=== PATIENT | female | born 1965 | race Two or more races ===

== ENCOUNTER 2022-04-15 19:19 | Emergency (ER) | payer OTHER ==
[~2022-04-15] VITALS: Ht 157.5 cm; Wt 138.3 kg
[~2022-04-15 19:19] MED LIST: COZAAR50 MG PO; SYNTHROID50 MCG PO
== END 2022-04-16 09:32 | disposition home or self-care (01) ==
LOC: ER 19:19
DX: S80.212A Abrasion, left knee, initial encounter (principal); L97.828 Non-pressure chronic ulcer of other part of left lower leg with other specified severity; L97.118 Non-pressure chronic ulcer of right thigh with other specified severity; L98.498 Non-pressure chronic ulcer of skin of other sites with other specified severity; I10 Essential (primary) hypertension; E66.01 Morbid (severe) obesity due to excess calories; E03.9 Hypothyroidism, unspecified

== ENCOUNTER 2022-07-08 10:15 | Outpatient (CLI) | payer OTHER | END 2022-07-08 10:17 | disposition home or self-care (01) | LOC: MAMO-SONO 10:15 | PROVIDERS: ATTEND Internal Medicine | DX: Z12.31 Encounter for screening mammogram for malignant neoplasm of breast (principal); N63.0 Unspecified lump in unspecified breast ==

== ENCOUNTER 2024-08-23 08:04 | Emergency (ER) | payer OTHER ==
[~2024-08-23] VITALS: Ht 154.9 cm; Wt 129.3 kg
[2024-08-23 08:50] LABS: HEMATOCRIT 40.7 % (36.0-45.00); HEMOGLOBIN 13.7 g/dL (12.0-15.00); MEAN CELL VOLUME 88.5 fL (80.00-100.00); MEAN CORPUSCULAR HEMOGLOBIN 29.9 pg (27.00-32.0); MEAN CORPUSCULAR HGB CONC 33.8 g/dl (32.0-36.0); PLATELET COUNT 271 K/uL (150-450); RED BLOOD COUNT 4.59 M/uL (4.00-6.00); RED CELL DISTRIBUTION WIDTH 14.3 % (11.5-14.5)
[2024-08-23 09:46] LABS: ALBUMIN 3.4 gm/dL (3.4-5.0); ALKALINE PHOSPHATASE 74 U/L (50-136); ALT/SGPT 22 U/L (12-78); ANION GAP 5 (10.0-20.0); AST/SGOT 21 U/L (15-37); BILIRUBIN TOTAL 0.46 mg/dL (0.3-1.2); BILIRUBIN,CONJUGATED < 0.10 mg/dL (0.0-0.2); BILIRUBIN,UNCONJUGATED 0.36 mg/dL (0.0-0.6); BLOOD UREA NITROGEN 17 mg/dL (7-18); BUN CREA RATIO 20 (7.0-25.0); CALCIUM 9.5 mg/dL (8.5-10.1); CARBON DIOXIDE 32 mEq/L (21-32); CHLORIDE 112 mmol/L (98-107); CREATININE SERUM 0.87 mg/dL (0.55-1.02); GFR 67.35; GLUCOSE FASTING 92 mg/dL (65-100); OSMOLALITY SERUM 290 MOSM/KG (275-295); POTASSIUM 4.42 mEq/L (3.5-5.1); SODIUM 145 mmol/L (136-145); TOTAL PROTEIN 7.2 gm/dL (6.4-8.2)
[2024-08-23 10:31] LABS: URINE APPEARANCE Cloudy; URINE BILIRRUBIN Negative (NEGATIVE); URINE BLOOD Negative; URINE COLOR Yellow; URINE GLUCOSE Negative (NEGATIVE); URINE KETONE Negative (NEGATIVE); URINE LEUKOCYTE Moderate; URINE NITRATE Negative; URINE PROTEIN Trace (NEGATIVE)
[2024-08-23 10:34] LABS: URINE BACTERIA 1436.3 uL (0.0-1933); URINE EPITHELIAL CELLS 95.7 uL (0.0-38.8); URINE RBC 20.1 uL (0.0-20.8); URINE WBC 237.7 uL (0.0-23.2)
== END 2024-08-23 11:25 | disposition home or self-care (01) ==
LOC: ER 08:06
PROVIDERS: General Practice
DX: N39.0 Urinary tract infection, site not specified (principal); R10.9 Unspecified abdominal pain; I10 Essential (primary) hypertension; E03.8 Other specified hypothyroidism

== ENCOUNTER 2025-02-18 13:01 | Emergency (ER) | payer OTHER ==
[~2025-02-18] VITALS: Ht 170.2 cm; Wt 129.3 kg
[2025-02-18] MEDS ORDERED: LIDOCAINE HCL 1% 10ML VIAL ONE (14:27)
== END 2025-02-18 17:17 | disposition home or self-care (01) ==
LOC: ER 13:02
DX: S01.81XA Laceration without foreign body of other part of head, initial encounter (principal); W10.8XXA Fall (on) (from) other stairs and steps, initial encounter; Y93.89 Activity, other specified; Y92.89 Other specified places as the place of occurrence of the external cause; Y99.8 Other external cause status; I10 Essential (primary) hypertension; E03.8 Other specified hypothyroidism

== ENCOUNTER 2025-02-26 11:17 | Emergency (ER) | payer OTHER ==
[~2025-02-26] VITALS: Ht 170.2 cm; Wt 129.3 kg
[2025-02-26] MEDS ORDERED: COZAAR25 MG (13:11)
[2025-02-26] MEDS ORDERED: LEVOTHYROXINE25 MCG (13:12)
== END 2025-02-26 13:49 | disposition home or self-care (01) ==
LOC: ER 11:17
DX: Z48.02 Encounter for removal of sutures (principal)